=== PATIENT | female | born 1975 | race Caucasian/White ===

== ENCOUNTER 2016-11-21 06:00 | Day surgery (SDC) | payer OTHER ==
[~2016-11-21 06:00] MED LIST: HYDR-4003 PO; IBUP800T28 PO; ONDA4TAB6 PO; OXYC1TAB24 PO; SENN-133 PO
[2016-11-21] MEDS ORDERED: Heparin 5,000 Units/500 mL NS Premix IV ONE (07:59)
[2016-11-21] MEDS ORDERED: levoFLOXacin 500 mg/100 mL D5W Premix IV ONE (08:12)
[2016-11-21] MEDS ORDERED: CeFAZolin 1 Gm/50 mL D5W Duplex Bag IV ONE (08:50)
--- NOTE | 2016-11-21 09:59 | DRSVH ---
PROCEDURE: 1. Antegrade pyelogram. 2. Transureteral wire placement. 3. Ultrasound guidance for right renal access. 4. Conscious sedation x50 minutes. INDICATIONS: Right renal pelvic calculus. TECHNIQUE: Informed, written consent from the patient was obtained prior to the procedure. Patient wa s brought to the angiography suite, and conscious sedation was administered intravenously by senior care staff, while continuous cardiorespiratory monitoring was performed. Maximal sterile barrier t echnique, hand hygiene, skin preparation, and sterile ultrasound technique (if ultrasound was utilize d) was followed. A mask, sterile gown, sterile gloves, a large sterile sheet, hand hygiene, and 2% ch lorhexidine or iodine was utilized for skin antisepsis. The right back was prepped and draped sterile ly, and the skin and subcutaneous tissues overlying the right kidney were infused with lidocaine. The right kidney inferior pole collecting system was accessed under sonographic guidance with an [employer] ck set. Contrast was injected for antegrade pyelogram. Multiple catheters were used in an attempt to pass a Glidewire into the ureter, including a 4 [employer] Helen[employer] nontapered angled catheter and a 4 [employer] Helenian C2 c atheter, and this was eventually successfully completed with a 4 [employer] Helenian Sos Omni catheter. 2 exchange length Amplatz wires were advanced into the urinary bladder through a 6 [employer] Helenian 25 cm long sheath. Th e wires were then fastened to the skin surface. FLUOROSCOPY TIME: 18.2 minutes COMPARISON: None. FINDINGS: Large renal pelvic calculus is present. Moderate interpolar and superior pole hydronephros is is present. At the conclusion of the procedure, 2 transureteral wires are present. IMPRESSION: 1. Large renal pelvic calculus associated with moderate hydronephrosis. 2. Transureteral wire placement as described above. Dictated by: James Bateman M.D. on 11/21/2016 at 9:53 Approved by: James Bateman M.D. on 11/21/2016 at 9:57
== END 2016-11-21 23:59 | disposition home or self-care (01) ==
LOC: SOUO 06:00
PROVIDERS: ATTEND Radiology Diagnostic Radiology
DX: N13.2 Hydronephrosis with renal and ureteral calculous obstruction (principal)
CPT/HCPCS: 50395; 74485; 99152; 99153; C1769; C1887; J1644; Q9967

== ENCOUNTER 2016-11-21 08:17 | Day surgery (SDC) | payer OTHER ==
[2016-11-21] VITALS (12 sets, daily range): BP systolic 95–137; BP diastolic 55–73; PULSE 55–75; RESP 12–18; O2SAT 95–100
[~2016-11-21] VITALS: Ht 167.6 cm; Wt 69.2 kg
[2016-11-21] MEDS: Lactated Ringer's 1,000 ML IV SCH ×3 (05:00→11:01)
[2016-11-21 08:15] LABS: BASOPHILS % (AUTO) 0.1 % (0-3); EOSINOPHILS % (AUTO) 2.4 % (0-5); Mean Corpuscular Hemoglobin 25.4 pg (27.0-35.0); NEUTROPHILS % (AUTO) 73.8 % (40-74); Platelet Count 201 bil/L (150-400)
[~2016-11-21 08:17] MED LIST changes: +Levofloxacin 500 mg/100 mL D5W IV SCH
[2016-11-21] MEDS ORDERED: MetoCLOpramide 5 mg/mL 2 mL Inj ONE (08:18)
[2016-11-21] MEDS ORDERED: Propofol 10,000 mCg/mL 20 mL Inj ONE (08:18)
[2016-11-21] MEDS ORDERED: Rocuronium 10 mg/mL 5 mL Inj ONE (08:18)
[2016-11-21] MEDS ORDERED: Dexamethasone 4 mg/mL Inj ONE (08:18)
[2016-11-21] MEDS ORDERED: Ondansetron 2 mg/mL 2 mL Inj ONE (08:18)
[2016-11-21] MEDS ORDERED: Neostigmine 1 mg/mL 10 mL Inj ONE (08:18)
[2016-11-21] MEDS ORDERED: Glycopyrrolate 0.2 MG/ML 1mL Inj ONE (08:18)
[2016-11-21] MEDS ORDERED: fentaNYL-PF 50 mCg/mL 2 mL Inj ONE ×4 (08:18→10:49)
[2016-11-21] MEDS ORDERED: 0.9% Sodium Chloride 250 ML ONE (08:31)
[2016-11-21] MEDS ORDERED: Lactated Ringer's 500 ML IV PRN (10:57)
[2016-11-21] MEDS ORDERED: Lactated Ringer's 1,000 ML IV SCH (10:57)
--- NOTE | 2016-11-21 10:57 | PCM.HPANE ---
Patient Data Surgeon Admitting Provider: Attending Provider:Clair Fan MD Primary Care Physician:Jarret Squires DO Other Provider:[facility] Reason for Visit Right Kidney Stone Ht/WT & BMI Height (Feet): 5 Height (Inches): 6 Weight (Kilograms): 69.85 Body Mass Index 24.00 Allergies Coded Allergies: levofloxacin (Verified Allergy, Intermediate, Hives, 11/21/16) Uncoded Allergies: TAPES (Allergy, Unknown, 11/18/16) Past Anesthesia History Anesthesia History: Denies:: Anesthesia Reactions Diabetes History Hx Diabetes?: No Medications Reported Medications Ondansetron (Zofran)4 Mg Tablet4 Mg PO Q4H PRN For Nausea 11/18/16 oxyCODONE-Acetaminophen 5-325 mg 1 Each Tablet1 Tab PO Q6H PRN For Pain Ref 0 11/18/16 Sennosides (Senna)8.6 Mg Tablet8.6 Mg PO PRN For Constipation 11/18/16 Discontinued Reported Medications Ibuprofen 800 Mg [id number] Mg PO TID PRN For Pain Ref 0 11/18/16 History History of ENT Problems?: No Hx of Heart Problems?: No Hx of Respiratory Problem?: No Respiratory History: Denies:: Oxygen Administration Use of C-PAP Machine Hx Neurologic Problems?: No Hx of GI Problems?: No Hx of Problems?: Yes Genitourinary History: Positive for:: Kidney Stones (large right current admission problem) Hx Musculoskeletal Problems?: Yes Hx Surgeries?: Yes (c section) Hx Any Other Health Problems?: Yes Other History: Denies:: Cancer Thyroid Disease Hx Diabetes: No Stop/Bang S-Snoring: Do You Snore Loudly: No T-Tired: feel tired, fatigued: Yes O-Obsered: Observed not breath: Yes P-Blood Pressure: treated: No B- Body Mass Index > 35 kg/m2: No A- Age over 50: No N- Neck Large Circumference: No G- Gender Male: No NASRIN Total Score: 2 Risk Assessment Category Category 1A: Patient has history of documented sleep apnea, and HAS NOT received any narcotic, sedative or anesthesia administration during this stay. Category 1B: Patient has history of documented sleep apnea, and HAS received any narcotic , sedative or anesthesia administration during this stay Category 2: Patient has SUSPECTED Obstructive Sleep Apnea, and HAS received any narcotic , sedative or anesthesia administration during this stay. Category 3: Patient has SUSPECTED Obstructive Sleep Apnea and HAS NOT received narcotic, sedative or anesthesia administration during this stay. Category 4: Outpatient in Procedural Areas with known sleep apnea or who screen positive for High Risk via the STOP/BANG questionnaire. Exam Exam General Appearance: Alert, Oriented X3, Cooperative, No Acute Distress HEENT/AIRWAY: MP 2 Lungs: Clear to Auscultation Heart: Exam Unremarkable Plan Impression Patient chart reviewed, patient interviewed and anesthestic plan with risks, benefits, and alternatives discussed, and informed consent obtained. ASA Physical Status: ASA2 Mod Systemic Disease Anesthetic Plan: GA Bene/Risks/Altern/Consents: Yes HP Complete Prior to Induction: Yes Kike Mccullough MD Nov 21, 2016 06:50
[2016-11-21] MEDS ORDERED: MetoCLOpramide 5 mg/mL 2 mL Inj IVPUSH PRN (11:00)
[2016-11-21] MEDS ORDERED: Phenylephrine 10,000 mCg/mL Inj IVPUSH PRN (11:00)
[2016-11-21] MEDS ORDERED: Ondansetron 2 mg/mL 2 mL Inj IVPUSH PRN (11:00)
[2016-11-21] MEDS ORDERED: EPHEDrine Sulfate 50 mg/mL Inj IVPUSH PRN (11:00)
[2016-11-21] MEDS ORDERED: Dexamethasone 4 mg/mL Inj IVPUSH PRN (11:00)
[2016-11-21] MEDS ORDERED: HYDROmorphone 1 mg/mL Inj IVPUSH PRN (11:00)
[2016-11-21] MEDS ORDERED: fentaNYL-PF 50 mCg/mL 2 mL Inj IVPUSH PRN (11:00)
[2016-11-21] MEDS ORDERED: Lactated Ringer's 1,000 ML IV ONE (13:21)
--- NOTE | 2016-11-21 14:15 | PCM.ANEP1 ---
Post Anesthesia Phase 1 PACU Phase 1 Assessment Vital Signs Vital Signs Date Time Temp Pulse Resp B/P Pulse Ox O2 Delivery O2 Flow Rate FiO2 11/21/16 13:55 58 12 110/64 98 Room Air 11/21/16 13:50 61 12 115/64 98 Room Air 11/21/16 13:45 63 12 116/60 99 Simple Mask 10 11/21/16 13:35 36.7 75 15 137/71 100 Simple Mask 10 11/21/16 10:43 74 17 121/73 97 Room Air 11/21/16 09:51 57 16 111/64 95 Room Air 11/21/16 09:49 60 16 110/69 95 Room Air 11/21/16 07:19 37.0 63 16 109/57 98 Room Air Anesthetic Administered: GA Level of Alertness: Awake, talking GASPAR's with Equal Strength: Yes Pain: No Nausea or Vomiting: No Oxygen Delivery: Room Air Lungs: Clear to Auscultation Dermatome Level: Full Sensation Kike Mccullough MD Nov 21, 2016 14:15
--- NOTE | 2016-11-21 14:15 | PCM.ANEP2 ---
Post Anesthesia Evaluation ASA/CMS Post Anesthesia VS in Patient's Normal Range?: Yes Resp Stable; Airway Patent?: Yes CV Function & Hydration Stable: Yes Mental Status Recovered?: Yes Pain control Satisfactory?: Yes N/V Control Satisfactory?: Yes Kike Mccullough MD Nov 21, 2016 14:15
--- NOTE | 2016-11-21 14:42 | DRSVH ---
PROCEDURE: X-RAY NEPHROSTOGRAM INDICATIONS: RIGHT SIDE KIDNEY STONE REMOVAL COMPARISON: [facility], CT, CT KUB, 10/18/2016, 11:52. FINDINGS: Intraoperative nephrostogram demonstrates opacification of the right renal collecting syst em with minimal hydronephrosis. Filling defect is noted within the pelvis suggestive of site of calci fication. IMPRESSION: Intraoperative nephrostogram demonstrate mild hydronephrosis and renal pelvic calcificat ion. Dictated by: Janine Riggs M.D. on 11/21/2016 at 14:40 Approved by: Janine Riggs M.D. on 11/21/2016 at 14:41
[2016-11-21] MEDS: D5 0.45% NaCl + KCl 20 mEq/L 1,000 ML IV SCH ×2 (15:32→23:59)
[2016-11-21] MEDS: HYDROcodone-APAP 5-325 mg Tablet PO PRN ×3 (15:32→20:02)
[2016-11-21] MEDS: HYDROmorphone 1 mg/mL Inj IVPUSH PRN ×2 (15:36→22:50)
[2016-11-21] MEDS ORDERED: Senna-Docusate 8.6-50 mg Tablet PO SCH (21:00)
--- NOTE | 2016-11-22 00:05 | OP ---
[address] [address] OPERATIVE REPORT PATIENT: JOSEFINA VARELA : 1975 MR#: [id number] ADMIT: 11/21/2016 JOB ID: [id number] DATE OF SURGERY: 11/21/2016 PREOPERATIVE DIAGNOSIS(ES): Staghorn calculus. POSTOPERATIVE DIAGNOSIS(ES): Staghorn calculus. PROCEDURE PERFORMED: 1. Right percutaneous nephrolithotomy. 2. Right antegrade nephrostogram. 3. Right percutaneous nephrostomy tube placement. 4. Right ureteral stent placement. SURGEON: Clair Fan MD. POLICE COMMANDING OFFICER: None. FINDINGS: Very dense stone consistent with CT scan findings of approximately 1300 Hounsfield units. Large stone approximately 3 cm, essentially a partial staghorn. ANESTHESIA: General. ESTIMATED BLOOD LOSS: 200 mL. DRAINS: 1. A 5-Ivorian Pollack as ureteral stent. 2. A 20-Ivorian Councill catheter as a right percutaneous nephrostomy tube. 3. Helton catheter to the bladder. SPECIMENS: Stone. COMPLICATIONS: None. CONDITION: Stable. INDICATION FOR PROCEDURE: The patient is a 41-year-old woman with the aforementioned findings. After reviewing her options, the patient wished to undergo a right percutaneous nephrolithotomy. She had previously undergone a right percutaneous nephrostomy tube placement with [facility] this morning. DESCRIPTION OF PROCEDURE: After informed consent was obtained, the patient was taken to the operating room. A time-out was performed, identifying correct patient, surgical site, and procedure. General anesthesia was smoothly induced. A catheter was placed in the patient's bladder and set to dependent drainage. She was placed in the prone position. All pressure points were identified and appropriately padded. Her back and flank were prepped and draped in usual sterile fashion. There was an existing nephrostomy tube placed by [facility]. They had previously called to indicate that this nephrostomy tube was placed as an obturator given the patient's bleeding during her procedure in [facility]. She had also had two wires placed down into the bladder in antegrade fashion. One of the wires was then removed and a 10-Ivorian dual-lumen catheter was loaded over it to the proximal ureter as seen under fluoroscopy. A Sensor tip wire was then loaded through the dual lumen and advanced into the bladder as seen under fluoroscopy. The remaining existing wire from [facility] was also removed and discarded. An Amplatz Super Stiff wire was placed into that port and advanced to the bladder seen under fluoroscopy. The dual-lumen was then removed. It should be noted that around the existing wires an 11 blade was used to create an approximately 1.5 to 2 cm incision in the transverse lie. Next, over the Super Stiff a NephroMax balloon was loaded over it and guided to the renal pelvis as seen under fluoroscopy. It was expanded, insufflated to 14 atmospheres of pressure and allowed to set for a few minutes. A 30-Ivorian nephroscope sheath was loaded over it and guided into the renal pelvis as seen under fluoroscopy. The balloon was then deflated and backloaded off the wire. The nephroscope was then advanced through the nephroscope sheath. The stone was seen there. Cyber wand was used to break the stone. The stone was extremely dense consistent with the CT findings. The nephroscope was then used to navigate the renal pelvis and the surrounding calices. The nephroscope sheath was manipulated into and out of the field to ensure that all the stone fragments had been removed. The nephroscope was used to explore all the visible calyces, and there were no stone fragments. The stone which had been quite radio- opaque had complete dissolution after this procedure under fluoroscopy. The nephroscope was then removed and a 20-Ivorian Councill tip catheter was placed over the Super Stiff wire and advanced to the renal pelvis. It was inflated with 2 cc of sterile water. An antegrade nephrostogram was performed. There was no extravasation of contrast whatsoever. The nephroscope sheath was then backloaded and excised away from the Councill tip. A 5-Ivorian open-ended Pollack was then loaded over the Sensor tip wire and advanced to the distal ureter. The medial aspect of the incision was closed with a 3-0 chromic. The nephroscope tube and the Pollack were then adhered to the patient's skin with a 2-0 nylon. Two Kerlix rolls were placed around these tubes and foam tape was used to create a soft pressure dressing over it. The patient was then reversed from general anesthesia and placed back in the supine position. She was taken to the PACU in good and stable condition. CATY
[2016-11-22] MEDS: HYDROcodone-APAP 5-325 mg Tablet PO PRN ×4 (01:06→12:02)
[2016-11-22] MEDS: HYDROmorphone 1 mg/mL Inj IVPUSH PRN ×2 (04:51→09:05)
[2016-11-22 05:14] VITALS: BP 100/67; PULSE 57; RESP 18; O2SAT 94
[2016-11-22] MEDS: D5 0.45% NaCl + KCl 20 mEq/L 1,000 ML IV SCH ×2 (08:16→14:50)
--- NOTE | 2016-11-22 08:41 | PCM.PNSURG ---
Subjective Date of Service: Nov 22, 2016 Date of Service: Nov 22, 2016 Visit Information: Reason for Visit Right Kidney Stone Surgery/Surgery Date R PERCUTANEOUS NEPHROSTOLITHOTOMY 11/21/16 Post-Op Day # 1 Date of Admission: Hospital Day # 2 Subjective: Pt notes pain, but it seems as expected.No n/v. Gastrointestinal: No N/V Pain Management: PO, IV Push Objective Vital Sign- Last 8 Hours Date Time Temp Pulse Resp B/P Pulse Ox O2 Delivery O2 Flow Rate FiO2 11/22/16 05:14 36.9 57 18 100/67 94 Room Air Intake and Output- Last 8 Hour 11/22/16 Cumulative From/Thru 07:00 11/18/16 12:29 - 11/22/16 05:14 Intake Total 900 ml 2451 ml Output Total 600 ml 800 ml Balance 300 ml 1651 ml Intake Oral 900 ml 900 ml IV Total 1551 ml Output Urine Total 600 ml 800 ml # Bowel Movements 0 0 General: Alert Abdomen: Soft, Other (RIGHT PCN tube draining thin red urine) Neuro: Cranial Nerves 2-12 nl Catheters: Urethral 2 Way Barton Result Diagram: 11/22/16 0509 11/22/16 0509 Assessment & Plan Impression POD#1 RIGHT PCNL Problems: Plan DC barton from bladder Cap RIGHT PCN tube KUB now Ambulate now and TID. OOBTC. IS DC planning likely later today Clair Fan MD Nov 22, 2016 08:41
--- NOTE | 2016-11-22 09:43 | DRSVH ---
PROCEDURE: X-RAY KUB ([id number]) INDICATIONS: 41 year-old female status post percutaneous nephrostomy. TECHNIQUE: One view of the abdomen acquired. COMPARISON: [facility], CR, XR NEPHROSTOGRAM, 11/21/2016, 11:02. [facility], CT, CT KUB, 10/18/2016, 11:52. FINDINGS: Surgical changes and devices: Right nephrostomy catheter is again noted, as well as concomitant right ureteral stent. Inferior portion of the stent lies within the distal right ureter, and not the bladd er lumen. Bowel: Bowel gas pattern is normal. Soft tissues: Cluster of right renal stones is present, measuring up to 2.0 cm in aggregate dimension s (previously up to 2.7 cm). Scattered bilateral pelvic phleboliths are again noted. Visualized jahaira d organ contours appear normal in size. Bones: No suspicious bony lesions. IMPRESSION: 1. Right ureteral stent is present, with inferior portions within the distal right ureter. 2. Sequelae of presumed right renal stone fragmentation therapy, with cluster of right renal stones d ecreased in aggregate dimensions compared with October 18, 2016. Dictated by: Jose Felder M.D. on 11/22/2016 at 9:38 Approved by: Jose Felder M.D. on 11/22/2016 at 9:41
[2016-11-22] MEDS: diphenhydrAMINE 25 mg Capsule PO PRN ×2 (12:02→16:11)
[2016-11-22] MEDS ORDERED: oxyCODONE-Acetamin 5-325 mg Tablet PO PRN (14:10)
--- NOTE | 2016-11-22 15:07 | PCM.DISURG ---
Surgical Discharge Instruction Date of Service Nov 22, 2016 Dates of Hospitalization Date of Hospital Admission Providers Admitting Physician: Primary Care Physician: Jarret Squires DO Attending Physician: Clair Fan MD Discharge Diagnosis Discharge Diagnosis RIGHT renal pelvis stone Post Operative diagnosis Same Diet Discharge Diet: No restrictions (please, stop drinking so much pop. ) Activity Discharge Activity-General: No lifting >10 pounds for 4-6 weeks Dressing and Incisional Care Dressing Care: Keep dressing clean, dry & intact, Change soiled dressing Hygiene: May shower, NO bathtub, hot tub or whirlpool Follow Up Plan Follow Up Plan 2 weeks wound check, stone analysis review (if available) Clair Fan MD Nov 22, 2016 15:07
--- NOTE | 2016-11-22 15:09 | PCM.DC.SUR ---
Discharge Summary Date of Service: Nov 22, 2016 Date of Hospital Admission: 11/21/16 Date of Operation(s): 11/21/16 Date of Discharge: 11/22/16 Diagnosis at Time of Discharge RIGHT renal pelvis stone Problems: Operation RIGHT PCNL Brief History and Physical: Pt w 3 cm stone, underwent RIGHT PCNL. Consultants: None Hospital Course: 11/21/16 she underwent IR procedure for RIGHT renal pelvis access. Then she underwent RIGHT PCNL in the OR. She did well with pain control. By the time of d /c home, she was walking and tolerating regular diet. Pathology: Pending Disposition: Home Follow-up Plan: 2 wks Ondansetron (Zofran) 4 Mg Tablet 4 MG PO Q4H PRN PRN For Nausea (Reported) Sennosides (Senna) 8.6 Mg Tablet 8.6 MG PO PRN For Constipation (Reported) oxyCODONE-Acetaminophen 5-325 mg (oxyCODONE-Acetaminophen 5-325 mg) 1 Each Tablet 1 TAB PO Q6H PRN PRN For Pain (Reported) Clair Fan MD Nov 22, 2016 15:09
[2016-11-22 16:40] VITALS: BP 118/72; PULSE 85; RESP 20; O2SAT 97
[2016-11-26 10:08] LABS: Stone Color Tan (.)
== END 2016-11-22 18:57 | disposition home or self-care (01) ==
LOC: SAS 08:17 → OSC 15:06 → SAS 11-22 18:57
PROVIDERS: ATTEND Urology
DX: N20.0 Calculus of kidney (principal); G89.18 Other acute postprocedural pain; R76.8 Other specified abnormal immunological findings in serum; F17.210 Nicotine dependence, cigarettes, uncomplicated
CPT/HCPCS: 36415; 50081; 50431; 74000; 74425; 80048; 82360; 85014; 85018; 85025; 86922; 96374; 96375; 96376; C1729; J0690; J1100; J1170; J1200; J2405; J2710; J2765; J3010; J7050; J7120; Q9967